=== PATIENT | female | born 1995 | race African-American/Black ===

== ENCOUNTER 2017-04-03 09:21 | Emergency (ER) | payer OTHER ==
[~2017-04-03] VITALS: Ht 165.1 cm; Wt 56.7 kg
[2017-04-03] MEDS ORDERED: Ketorolac 30mg Inj IV ONE (09:45)
--- NOTE | 2017-04-03 09:45 | Emergency Room Report ---
History of Present Illness General Chief Complaint: Female Urogenital Problems Source: Patient Present Illness HPI Patient presents with complaints of vaginal bleeding And lower abdominal discomfort Patient reports that she has taken the morning after pill several days ago Began having cramping and abdominal pain she was told to come to the hospital she had shoulder pain she reports that she did have shoulder pain Patient is reports that she had her initial ultrasound last week Patient reports that her last menstrual cycle was February 10 Denies any vomiting denies any fevers or chills patient was do to take her second round of pills today however has not taken them as of yet Allergies: Coded Allergies: No Known Allergies (Unverified , 04/03/17) Patient History Past Medical History: see triage record Pertinent Family History: none Now: No Reviewed Nursing Documentation: PMH: Agreed, PSxH: Agreed Nursing Documentation-PMH Past Medical History: No Stated History Review of Systems All Other Systems: negative except mentioned in HPI Physical Exam Vital Signs Date Time Temp Pulse Resp B/P (MAP) Pulse Ox O2 Delivery O2 Flow Rate FiO2 04/03/17 09:14 98.4 80 18 98/64 100 Room Air Sp02 EP Interpretation: reviewed, normal General Appearance: well appearing, no apparent distress Head: normocephalic, atraumatic Eyes: bilateral eye PERRL, bilateral eye EOMI ENT: hearing grossly normal, normal pharynx, TMs + canals normal, uvula midline Neck: full range of motion, supple, no meningismus, no bony tend Respiratory: lungs clear, normal breath sounds, no rhonchi, no respiratory distress, no retraction, no accessory muscle use Cardiovascular #1: normal peripheral pulses, regular rate, rhythm, no edema, no gallop, no JVD, no murmur Gastrointestinal: normal bowel sounds, non tender, soft, no mass, no organomegaly, non-distended, no guarding, no hernia, no pulsatile mass, no rebound Genitourinary: no CVA tenderness Musculoskeletal: normal inspection Neurologic: oriented x3, responsive, scrap kettle tender III-XII nml as tested, motor strength/ tone normal, sensory intact Psychiatric: mood/affect normal Skin: normal color, no rash, warm/dry, palpation normal Lymphatic: normal inspection, no adenopathy Medical Decision Making Diagnostic Impression: Primary Impression: Incomplete Additional Impression: Threatened ER Course With the patient's history and examination, multiple differentials considered, including but not limited to , ectopic , ovarian torsion, gastritis, cholecystitis, pancreatitis, appendicitis Patient has been taking medications for At this time ultrasound shows evidence of possible inevitable miscarriage however they still do see intrauterine Patient will require continued outpatient eval Hemodynamically remained stable Does not have signs of ectopic Labs Test 04/03/17 09:40 White Blood Count 6.2 K/UL (4.8-10.8) Red Blood Count 3.93 M/UL (4.20-5.40) Hemoglobin 12.3 G/DL (12.0-16.0) Hematocrit 36.8 % (37.0-47.0) Mean Corpuscular Volume 94 FL (80-99) Mean Corpuscular Hemoglobin 31.2 PG (27.0-31.0) Mean Corpuscular Hemoglobin Concent 33.4 G/DL (32.0-36.0) Red Cell Distribution Width 12.6 % (11.6-14.8) Platelet Count 354 K/UL (150-450) Mean Platelet Volume 7.4 FL (6.5-10.1) Neutrophils (%) (Auto) 77.2 % (45.0-75.0) Lymphocytes (%) (Auto) 14.4 % (20.0-45.0) Monocytes (%) (Auto) 7.0 % (1.0-10.0) Eosinophils (%) (Auto) 0.1 % (0.0-3.0) Basophils (%) (Auto) 1.3 % (0.0-2.0) Sodium Level 136 MMOL/L (136-145) Potassium Level 3.7 MMOL/L (3.5-5.1) Chloride Level 100 MMOL/L (98-107) Carbon Dioxide Level 25 MMOL/L (21-32) Anion Gap 11 mmol/L (5-15) Blood Urea Nitrogen 8 mg/dL (7-18) Creatinine 0.6 MG/DL (0.55-1.30) Estimat Glomerular Filtration Rate > 60 mL/min (>60) Glucose Level 81 MG/DL (74-106) Calcium Level 9.4 MG/DL (8.5-10.1) Human Chorionic Gonadotropin, Quant 243662 mIU/mL (1-6) CT/MRI/US Diagnostic Results CT/MRI/US Diagnostic Results : Impression pelvic ultrasoundIMPRESSION: Single living intrauterine 6 weeks 4 days gestational age. Blood noted in the endocervical canal and lower uterine segment. Last Vital Signs Date Time Temp Pulse Resp B/P (MAP) Pulse Ox O2 Delivery O2 Flow Rate FiO2 04/03/17 09:14 98.4 80 18 98/64 100 Room Air Status: improved Disposition: HOME, SELF-CARE Condition: Improved Scripts Metoclopramide Hcl* (REGLAN*) 10 Mg Tablet 10 MG ORAL THREE TIMES A DAY, #12 TAB Prov: RAFAEL BELLA D.O. 04/03/17 Additional Instructions: Patient is provided with the discharge instructions notified to follow up with primary doctor in the next 2-3 days otherwise return to the er with any worsening symptoms. Please note that this report is being documented using [employer] technology. This can lead to erroneous entry secondary to incorrect interpretation by the dictating instrument. RAFAEL BELLA D.O. Apr 03, 2017 09:45
[2017-04-03 09:59] LABS: BASOPHILS % (AUTO) 1.3 % (0.0-2.0); EOSINOPHILS % (AUTO) 0.1 % (0.0-3.0); HEMATOCRIT 36.8 % (37.0-47.0); HEMOGLOBIN 12.3 G/DL (12.0-16.0); LYMPHOCYTES % (AUTO) 14.4 % (20.0-45.0); MEAN CORPUSCULAR VOLUME 94 FL (80-99); NEUTROPHILS % (AUTO) 77.2 % (45.0-75.0); PLATELET COUNT 354 K/UL (150-450); RED BLOOD COUNT 3.93 M/UL (4.20-5.40); RED CELL DISTRIBUTION WIDTH 12.6 % (11.6-14.8); WHITE BLOOD COUNT 6.2 K/UL (4.8-10.8)
[2017-04-03 10:09] LABS: ANION GAP 11 mmol/L (5-15); BLOOD UREA NITROGEN 8 mg/dL (7-18); CALCIUM 9.4 MG/DL (8.5-10.1); CARBON DIOXIDE 25 MMOL/L (21-32); CHLORIDE 100 MMOL/L (98-107); CREATININE 0.6 MG/DL (0.55-1.30); POTASSIUM 3.7 MMOL/L (3.5-5.1); SODIUM 136 MMOL/L (136-145)
[2017-04-03 11:11] VITALS: BP 96/65
[2017-04-03] MEDS ORDERED: REGLAN10 MG ORAL (12:36)
[2017-04-03 13:34] VITALS: BP 96/65
--- NOTE | 2017-04-03 14:17 | Diagnostic Imaging Report ---
Indication: Pelvic pain and vaginal bleeding Technique: Grayscale and duplex Doppler imaging of the pelvis performed utilizing a transabdominal scan and endovaginal scan. Comparison: None Findings: Single living intrauterine demonstrated. Based on crown-rump length gestational age estimated at 6 weeks 4 days with heart tones demonstrated. Yolk sac noted. Blood noted within the endocervical and endometrial canal. Trace free fluid demonstrated. Contour and echogenicity of the ovaries are within normal limits with dopplerable blood flow. Right ovary is 2.9 x 2 x 1.7 cm. Left ovary is 2.7 x 3.7 x 2.8 cm. IMPRESSION: Single living intrauterine 6 weeks 4 days gestational age. Blood noted in the endocervical canal and lower uterine segment.
== END 2017-04-03 13:37 | disposition home or self-care (01) ==
LOC: EDBD 09:21 → EMR 10:53
DX: O03.4 Incomplete spontaneous abortion without complication (principal); Z3A.01 Less than 8 weeks gestation of pregnancy
CPT/HCPCS: 36415; 76801; 76830; 80048; 84702; 85025; 99284